=== PATIENT | female | born 1980 | race Caucasian/White ===

== ENCOUNTER 2017-10-23 13:28 | Observation (INO) | payer MEDICARE ==
[2017-10-23 14:34] LABS: #Basophils 0.1 thou/uL (0.0-0.2); #Eosinphils 0.1 thou/uL (0.0-0.7); #Lymphocytes 0.9 thou/uL (1.20-3.40); #Monocytes 0.3 thou/uL (0.11-0.59); %Basophils 1.2 % (0.0-1.0); %Lymphocytes 17.4 % (21.0-51.0); %Neutrophils 74.3 % (42.0-75.0); Hemoglobin 8.9 g/dL (12.0-16.0); Hypochromia SLIGHT = 6-15 cells (100X) (0-5/hpf); MDiff Complete? YES; Mean Corpuscular HGB CONC 31.6 g/dL (32.0-36.0); Mean Corpuscular Hemoglobin 22.4 pg (27.0-31.0); Mean Corpuscular Volume 70.9 fl (81.0-99.0); Mean Platelet Volume 8.5 fL (7.4-10.4); Microcytosis SLIGHT = 6-15 cells (100X) (0-5/hpf); Ovalocytes SLIGHT = 2-5 cells (100X) (0-1/hpf); PLT Morphology Comment Appears Adequate; Platelet Count 248 thou/uL (130-400); RBC Distribution Width 15.2 % (11.5-14.5); Red Blood Cell (RBC) Count 3.95 mill/uL (4.20-5.40); White Blood Cell (WBC) Count 5.3 thou/uL (4.8-10.8)
[2017-10-23 14:36] LABS: ALT (SGPT) 12 U/L (8-55); AST (SGOT) 17 U/L (5-34); Albumin 3.8 g/dL (3.5-5.0); Alkaline Phosphatase 80 U/L (40-150); Anion Gap 13 mmol/L (10-20); BUN (Urea Nitrogen) 11 mg/dL (7.0-18.7); Bilirubin, Total 0.3 mg/dL (0.2-1.2); CK (CPK) 148 U/L (29-168); Calc. Creatinine Clearance 0 mL/min (70-130); Calcium 8.6 mg/dL (7.8-10.44); Carbon Dioxide 23 mmol/L (22-29); Chloride 106 mmol/L (98-107); Estimated GFR-MDRD 77; Globulin 2.6 g/dL (2.4-3.5); Glucose 110 mg/dL (70-105); Lipase 26 U/L (8-78); Potassium 4.5 mmol/L (3.5-5.1); Protein, Total 6.4 g/dL (6.0-8.3); Sodium 137 mmol/L (136-145); Troponin I 0.016 ng/mL (< 0.028)
--- NOTE | 2017-10-23 14:50 | CT ---
CT HEAD NONCONTRAST: History: Fall. Head injury. FINDINGS: There is no evidence of acute intracranial hemorrhage or infarct. The ventricles appear normal in siz e, shape, and position. There is no mass effect or shift of midline structures. Small pocket of gas w ithin the right frontal scalp is consistent with the historically stated laceration. No depressed sku ll fracture is apparent. IMPRESSION: No acute intracranial abnormalities are demonstrated. POS: [facility]
--- NOTE | 2017-10-23 15:20 | RAD ---
CHEST ONE VIEW: History: Syncope. Comparison: 04-06-15 FINDINGS: Cardiac silhouette is magnified and upper limits of normal in size. Pulmonary vasculature is slightly engorged and accentuated by shallow inspiration. Mediastinum is midline. windchill administrator leads overl ie the chest. IMPRESSION: 1. Borderline pulmonary vascular congestion. POS: [facility]
[2017-10-23 15:25] LABS: Clarity Hazy (Clear)
[2017-10-23 15:30] LABS: Bacteria/HPF 1+ HPF (None Seen); RBC/HPF GREATER THAN 50-TNTC HPF (0-3)
[2017-10-23 15:31] LABS: Cocaine Metabolite Screen Not Detected (NotDetected); Methamphetamine Not Detected (NotDetected); Opiate Screen Not Detected (NotDetected); Phencyclidine (PCP) Not Detected (NotDetected); Pregnancy Test - Urine (BHCG) Negative (Negative); Pregu Control Background? CLEAR/WHITE (CLR/WHITE); Pregu Control Bar Appear? YES (CONTROL BAR); THC/Cannabinoid Screen Not Detected (NotDetected)
--- NOTE | 2017-10-23 15:31 | CT ---
CT FACIAL BONES WITH CORONAL AND SAGITTAL REFORMATIONS: HISTORY: Trauma. Laceration to the right forehead and swelling to the bridge of the nose. FINDINGS: No facial bone fracture is seen. No temporomandibular dislocation is identified. No air fluid level s are noted in the paranasal sinuses. The paranasal sinuses and mastoid air cells are clear. There is minimal mucosal disease in the left maxillary sinus. IMPRESSION: No CT evidence of facial bone fracture. POS: [facility]
[2017-10-23 15:32] LABS: Amphetamine Detected (NotDetected); Barbiturates Screen Not Detected (NotDetected); Benzodiazepine Screen Not Detected (NotDetected); Medtox Control Line Valid? VALID (VALID); Methadone Not Detected (NotDetected); Oxycodone Screen Not Detected (NotDetected); Tricyclic Screen Detected (NotDetected)
[2017-10-23] MEDS ORDERED: Ketorolac Tromethamine 30 MG/ML VIAL ONE (15:37)
[2017-10-23 17:17] LABS: Troponin I 0.029 ng/mL (< 0.028)
[2017-10-23 17:59] VITALS: BMI 34.2
[2017-10-23] MEDS ORDERED: Ondansetron ODT 4 MG TAB SL PRN (18:10)
[2017-10-23] MEDS ORDERED: Ondansetron HCl/PF 4 MG/2 ML Vial IVP PRN (18:10)
[2017-10-23] MEDS ORDERED: Senokot 8.6 MG TAB PO PRN (18:59)
[2017-10-23] MEDS ORDERED: Sodium Chloride 0.9% 1,000 ML IV SCH (19:00)
[2017-10-23] MEDS: Acetaminophen 325 MG TAB PO PRN (20:40)
[2017-10-23] MEDS: Famotidine 20 MG TAB PO SCH (20:40)
[2017-10-23] MEDS: Zolpidem Tartrate 5 MG TAB PO PRN ×2 (20:58→20:59)
[2017-10-23] MEDS ORDERED: buPROPion HCl 100 MG TAB PO SCH (21:00)
--- NOTE | 2017-10-23 21:07 | HP ---
REASON FOR ADMISSION: Syncope, indeterminate cardiac enzymes. HISTORY OF PRESENTING ILLNESS: The patient gives history of not feeling well from last 2 weeks. She also mentions that she takes annual iron infusions, the last one was in 06/2017. This morning, the patient was playing with her children and her friend's kids as well. They were all planning to go for a small picnic around 11:30 in the morning. The next thing she knows is one of her kid is telling her that she has got a wound on her right forehead and was bleeding. At the same time, the parents of the friend's kid arrived and drove her to the emergency room. She has had laceration to the right pentecostalism area and has had trauma protocol CT brain and CT facial bones done with no acute fractures. Patient does not recollect having fallen/hit her face anywhere. No complaints of chest pain, palpitation, PND or orthopnea. No complaints of cough or expectoration. No complaints of starting any new medications. No urinary frequency or urgency or fever at home. There is no diarrhea, nausea or vomiting. PAST MEDICAL AND SURGICAL HISTORY: History of depression, anxiety, ADHD, PTSD, appendectomy, hypothyroidism, chronic anemia with a yearly infusions, prior history of small-bowel obstruction with surgeries done. She was hospitalized for nearly 6 months and was in a coma as well for 3 weeks during that hospitalization. History of gastric bypass 11 years ago, cholecystectomy, appendectomy, and hernia surgery x2. All of the surgeries were done by Dr. Pereira except gastric bypass, which was done 11 years back. Insomnia. CURRENT MEDICATIONS: The patient is on Ambien 10 mg p.o. at bedtime, Wellbutrin 100 mg p.o. twice daily, levothyroxine 25 mcg p.o. daily, Adderall 30 mg p.o. daily, Zoloft 200 mg p.o. at bedtime. ALLERGIES: No known drug allergies. PERSONAL HISTORY: She does not abuse alcohol or drugs. No history of smoking. Lives with her . Has three children, the last kid is 6 years old. The patient is on disability. FAMILY HISTORY: Mother is living. She has history of obesity and depression. Father at the age of 62 years. He had history of cancer spreading to lungs , kidney and brain. REVIEW OF SYSTEMS: The following complete review of systems was negative, unless otherwise mentioned in the HPI or below: Constitutional: Weight loss or gain, ability to conduct usual activities. Skin: Rash, itching. Eyes: Double vision, pain. ENT/Mouth: Nose bleeding, neck stiffness, pain, tenderness. Cardiovascular: Palpitations, dyspnea on exertion, orthopnea. Respiratory: Shortness of breath, wheezing, cough, hemoptysis, fever or night sweats. Gastrointestinal: Poor appetite, abdominal pain, heartburn, nausea, vomiting, constipation, or diarrhea. Genitourinary: Urgency, frequency, dysuria, nocturia. Musculoskeletal: Pain, swelling. Neurologic/Psychiatric: Anxiety, depression. Allergy/Immunologic: Skin rash, bleeding tendency. PHYSICAL EXAMINATION: GENERAL: The patient is a 36-year-old female, who is not in any acute distress at present. VITAL SIGNS: Blood pressure 96/54, pulse 90 per minute, respiratory rate 18 per minute, temperature 98.3 degrees Fahrenheit, saturating 99% on room air. NECK: Supple, no elevated JVD. HEENT: Eyes: Extraocular muscles intact. Pupils are reacting to light. Oral cavity: Mucous membranes are moist. No exudates or congestion. The patient has a laceration over her right pentecostalism, which is linear measuring 2 cm in length. This has been approximated with the Dermabond. She also has a small laceration over the bridge of the nose, which is less than 0.5 cm. CARDIOVASCULAR: S1, S2 heard. Regular rhythm. RESPIRATORY: Air entry 2+ bilateral. Scattered rhonchi plus, no rales or wheezes. ABDOMEN: Soft, bowel sounds heard. No tenderness, rigidity or guarding. EXTREMITIES: No peripheral edema or calf tenderness. VASCULAR SYSTEM: Peripheral pulses 2+ bilateral, no ischemic ulcerations or gangrene. CENTRAL NERVOUS SYSTEM: No gross focal deficits seen. The patient is alert and oriented well. PSYCHIATRIC: The patient's mood is euthymic. No hallucinations or delusions. LABORATORY AND X-RAY FINDINGS: Urine drug screen is positive for tricyclics and amphetamine, likely due to Adderall. Urine test is negative. Troponin I first set was negative, second set is 0.029. CK-MB is 4.0, albumin is 3.8, lipase is 26, BUN 11, creatinine 0.8, and serum glucose 110. Liver enzymes are within normal limits. Electrolytes are stable. White count of 5.3 , hemoglobin and hematocrit 8.9 and 28, platelet count 248, MCV is 70 with 74% neutrophils. EKG was done shows normal sinus rhythm at 69 beats per minute, no gross ST-T wave changes. CLINICAL IMPRESSION AND PLAN: The patient will be under observation on telemetry for syncope with indeterminate cardiac enzyme and chest x-ray showing mild cardiomegaly. Please note, the patient has had CT head and CT facial bones done, which have not shown any fractures or abnormalities. We will obtain one more set of troponin in the morning. She will be on normal saline at 70 mL per hour. I am told by the nurse that her orthostatic blood pressures are within normal limits. The patient is on multiple psychotropic medications plus the Ambien, which might have caused the current syncope. Her QT interval was 404 with no prolongation at present, but nevertheless, it is unclear if she had any arrhythmias which led to this. She will be on full dose aspirin. We will continue her Wellbutrin, Adderall, Synthroid, Zoloft, and a lower dose of Ambien for now. We will also consult Dr. Pond for Cardiology. Echo with 2D Doppler and a nuclear stress test will be obtained as well. She will be closely monitored on telemetry for possible arrhythmias. MARGARITO
[2017-10-23] MEDS: Metoprolol Tartrate 25 MG TAB PO SCH (22:33)
[2017-10-24] MEDS: traMADol HCl 50 MG TAB PO PRN ×3 (00:05→12:16)
[2017-10-24] MEDS: Nitroglycerin 2% Ointment 1 INCH/1 GM Packet TOP SCH ×3 (00:06→13:08)
[2017-10-24] MEDS: Acetaminophen 325 MG TAB PO PRN ×3 (00:44→12:16)
[2017-10-24 05:33] LABS: #Eosinphils 0.1 thou/uL (0.0-0.7); #Monocytes 0.4 thou/uL (0.11-0.59); #Neutrophils 4.5 thou/uL (1.40-6.50); %Basophils 0.4 % (0.0-1.0); %Eosinophils 1.1 % (0.0-10.0); %Lymphocytes 28.6 % (21.0-51.0); %Monocytes 6.3 % (0.0-10.0); %Neutrophils 63.6 % (42.0-75.0); Hemoglobin 8.5 g/dL (12.0-16.0); Mean Corpuscular HGB CONC 31.9 g/dL (32.0-36.0); Mean Corpuscular Hemoglobin 23.5 pg (27.0-31.0); Mean Corpuscular Volume 73.6 fl (81.0-99.0); Mean Platelet Volume 8.5 fL (7.4-10.4); Platelet Count 238 thou/uL (130-400); RBC Distribution Width 15.5 % (11.5-14.5); Red Blood Cell (RBC) Count 3.63 mill/uL (4.20-5.40)
[2017-10-24 05:51] LABS: Anion Gap 9 mmol/L (10-20); BUN (Urea Nitrogen) 10 mg/dL (7.0-18.7); Calc. Creatinine Clearance 139 mL/min (70-130); Calcium 8.3 mg/dL (7.8-10.44); Carbon Dioxide 22 mmol/L (22-29); Cardiac Risk 2.7 (Less than 4.5); Chloride 111 mmol/L (98-107); Cholesterol 123 mg/dl (< 200 Desired); Estimated GFR-MDRD 80; Glucose 92 mg/dL (70-105); HDL Cholesterol 45 mg/dL (>60 Neg Risk); LDL Cholesterol, Calculated 65 mg/dL; Sodium 138 mmol/L (136-145); Triglycerides 67 mg/dL (Less than 150)
[2017-10-24] MEDS ORDERED: Levothyroxine Sodium 25 MCG TAB PO SCH (06:00)
[2017-10-24 07:51] LABS: Troponin I 0.012 ng/mL (< 0.028)
[2017-10-24] MEDS ORDERED: Aspirin 325 MG TAB PO SCH (09:00)
[2017-10-24] MEDS ORDERED: Dextroamphetamine/Amphetamine [Adderall] 30 MG PO SCH (09:00)
--- NOTE | 2017-10-24 10:53 | PDOC.PN ---
- Subjective Encounter Start Date: 10/24/17 Encounter Start Time: 15:35 Subjective: Patient had her first episode yesterday after taking 200mg Welbutrin , then -: second episode in hospital last night 30min after 100mg Welbutrin. No -: problems since. Feeling fine. - Objective Resuscitation Status: Resuscitation Status FULL:Full Resuscitation MAR Reviewed: Yes Vital Signs & Weight: Vital Signs (12 hours) Temp Pulse Resp BP BP BP BP 10/24/17 08:00 97.8 F 57 L 16 10/24/17 07:47 97.8 F 57 L 16 96/51 L 95/54 L 94/51 L 10/24/17 05:02 98.0 F 64 20 95/53 L Pulse Ox 10/24/17 08:00 10/24/17 07:47 95 10/24/17 05:02 95 Weight Weight 206 lb I&O: 10/23/17 10/24/17 10/25/17 06:59 06:59 06:59 Intake Total 1073 Output Total 1100 Balance -27 Result Diagrams: 10/24/17 04:57 10/24/17 04:57 Phys Exam - Physical Examination Constitutional: NAD HEENT: PERRLA, moist MMs bruise on right forehead and bridge of nose Respiratory: no wheezing, no rales, no rhonchi, clear to auscultation bilateral Cardiovascular: RRR, no significant murmur Gastrointestinal: soft, positive bowel sounds Musculoskeletal: no edema Neurological: non-focal, moves all 4 limbs Psychiatric: normal affect, A&O x 3 Dx/Plan (1) Syncope Code(s): R55 - SYNCOPE AND COLLAPSE Status: Acute Qualifiers: Syncope type: unspecified Qualified Code(s): R55 - Syncope and collapse Comment: recurrent episode in bed 30 min after Welbutrin last night (2) Elevated troponin Code(s): R74.8 - ABNORMAL LEVELS OF OTHER SERUM ENZYMES Status: Resolved Comment: mild indeterminate trop on second set only, resolved (3) Depression with anxiety Status: Chronic - Plan cont current plan of care ECHO and stress test negative. Dr. Rodriguez has cleared for discharge. Will -: do outpatient event monitor. Stop all Welbutrin and f/u with PCP in 1 week. * . - Discharge Day Encounter end time: 15:55
[2017-10-24] MEDS ORDERED: ADENOSINE 60 MG/20 ML VIAL ONE (11:53)
--- NOTE | 2017-10-24 12:11 | NM ---
RADIONUCLIDE STRESS AND REST MYOCARDIAL PERFUSION SCAN WITH CT ATTENUATION CORRECTION AND SPECT IMAGI NG WITH LEFT VENTRICULAR WALL MOTION EVALUATION AND EJECTION FRACTION: HISTORY: Chest pain. FINDINGS: Adenosine protocol was used. There is homogeneous uptake of radiotracer throughout the left ventricul ar myocardium. No focal perfusion defect or reversibility. QGS analysis of gated SPECT images shows no focal wall motion abnormalities. Left ventricular ejectio n fraction is calculated at 70%. IMPRESSION: 1. Normal myocardial perfusion scan. 2. Normal LVEF. POS: [facility]
[2017-10-24] MEDS: Enoxaparin Sodium 40 MG/0.4 ML SYRINGE SC SCH ×2 (12:19→16:19)
[2017-10-24] MEDS: Famotidine 20 MG TAB PO SCH (12:19)
[2017-10-24] MEDS: Metoprolol Tartrate 25 MG TAB PO SCH (13:08)
[2017-10-24 15:31] VITALS: BP 97/55; TEMP 97.8
--- NOTE | 2017-10-24 16:21 | CON ---
DATE OF CONSULTATION: 10/24/2017 CARDIOLOGY CONSULTATION REASON FOR CONSULTATION: Syncope. HISTORY OF PRESENT ILLNESS: Ms. Hayes is a very pleasant 36-year-old white female who comes to the hospital for syncopal spell. She was at home taking care of several kids and she lifted a kid from a high chair and she woke up on the floor with blood around her face and the kids are trying to wake her up to see what was going on. She was brought into the emergency room for this. CT of the facial bones done showed no fractures. Cardiology is being consulted for this. She denies any chest pain, tightness, or pressure. No shortness of breath, no presyncopal symptoms. No palpitations, no lightheadedness in the past, this is the first time she has ever passed out. PAST MEDICAL HISTORY: 1. Depression. 2. Anxiety. 3. Attention deficit hyperactivity disorder. 4. Post-traumatic stress disorder. 5. Hypothyroidism. 6. Chronic anemia with yearly infusions secondary to gastric bypass 11 years ago. PAST SURGICAL HISTORY: 1. Appendectomy. 2. Small-bowel obstruction with surgery in the past. 3. Gastric bypass 11 years ago. 4. Cholecystectomy. 5. Appendectomy. 6. Hernia repair x2. OUTPATIENT MEDICATIONS: Include, 1. Ambien 10 mg at bedtime. 2. Wellbutrin 100 mg b.i.d. 3. Levothyroxine 25 mcg a day. 4. Adderall 30 mg a day. 5. Zoloft 200 mg at bedtime. ALLERGIES: No known drug allergies. SOCIAL HISTORY: No alcohol, tobacco or drugs. Lives with her , has 3 kids. She is disabled from her PTSD. FAMILY HISTORY: Noncontributory. REVIEW OF SYSTEMS: A 12 point review of systems was done and is all negative unless stated in history of present illness. PHYSICAL EXAMINATION: VITAL SIGNS: Temperature 97.8, pulse 57, respiration rate 18, satting 96% on room air, blood pressure 97/55. She is not orthostatic. GENERAL: Awake, alert, oriented x3, in no distress. HEENT: Normocephalic, atraumatic. NECK: Supple. LUNGS: Clear. CARDIOVASCULAR: S1, S2, no S3, S4, no murmurs or rubs. ABDOMEN: Soft, positive bowel sounds. EXTREMITIES: No edema. SKIN: Warm and dry. LABORATORY DATA: Laboratory work was reviewed. CBC with anemia; hemoglobin 8.5 , normal platelet count. Chemistries were unremarkable. Troponin was 0.01, 0.02, 0.01. Albumin was 3.8, triglycerides of 67, cholesterol of 123, LDL of 65 , HDL of 45. Lipase was normal. UA showed greater than 50 white cells and nitrites were negative. Toxicology was positive for tricyclics and amphetamines , which is on her medication list. IMAGING DATA: Nuclear stress that was done and it showed no areas of ischemia. EF was 70% on the test. Echocardiogram was done. EF of 50%-55% with moderate MR, mild TR, mild PI. ASSESSMENT AND PLAN: 1. Syncope. 2. Anxiety and depression, on several psychotropic drugs. PLAN: 1. No major arrhythmias seen on telemetry monitoring. No ischemia or valvular abnormality seen on echocardiogram and stress testing. 2. We will plan on doing more monitoring as she may have tachybradycardia given her syncopal spells. We will plan on doing a 30-day event monitor. If this does not yield any results, we will do a LINQ implantable loop recorder monitor for long-term monitoring. There is concern about cardiac syncope giving her no warning and having a child in her hands and falling. I have advised her not to drive for the next 6 months for DP as rules and not to engage in any high risk activities. If she would report to pass out, that would be fatal or risk injury. She verbalized understanding of this. 3. She may be discharged home from the hospital today. We will send her the information for the event monitor and we will follow up with her in 1 month. MARGARITO
--- NOTE | 2017-10-25 06:12 | DIS ---
PRIMARY CARE PHYSICIAN: Dr. Sohail Vega at [facility]. DIAGNOSES ON ADMISSION: 1. Syncope. 2. Indeterminate troponin. 3. Right muslim laceration. DIAGNOSES AT DISCHARGE: 1. Syncope, likely related to increased Wellbutrin dose. 2. Indeterminate troponin, resolved with negative cardiac workup. 3. Depression, anxiety, chronic. 4. Right temporal laceration repaired. PROCEDURES: 1. CT of the brain showing no fracture or other abnormality. 2. Facial bone CT showing no evidence of facial bone fracture. 3. Echocardiogram showing normal ejection fraction and no significant abnormalities. 4. Nuclear medicine stress test, which was negative for any evidence of ischemia. CONSULTATIONS: Cardiology, Dr. Pond. SUMMARY OF HOSPITAL COURSE: This is a 36-year-old white female with an extensive history of anxiety, depression, ADHD, PTSD, who is on several medicines for this, recently had an increase in her dose o f Wellbutrin from 150 mg extended release once a day to 100 mg twice a day. She had been forgetting to take these, and so her primary care physician just told her to go ahead and take 200 mg at one [facility] in the morning. The patient has been doing this for about a week and has been feeling very bad for the last week. She took her morning medicines around 11 on the day of admission, and soon after evette t, she woke up with wound in her forehead, apparently had passed out, hit her head, was brought to [facility] emergency room. There, her vital signs were normal. She had a laceration repaired in the emergenc y room and had negative workup as above. The patient was put in the hospital, had a cardiac workup, it was negative. She was given her home medications of Wellbutrin 100 mg twice a day and they gave h er another 100 mg tablet later in the evening. Thirty minutes after taking this, she actually became confused, spilled water everywhere and was trying to get out of bed and was not able to respond, patrick y groggy, this lasted for a few minutes and then she cleared. Her Wellbutrin was stopped. The patie nt's orthostatic vital signs were normal. Her Wellbutrin was held. She had no more symptoms during hospitalization. Dr. Pond was consulted and determined that this is not likely cardiac, but recomm ended doing an outpatient event monitoring, which he will set up. He has cleared her to go home. DISCHARGE MANAGEMENT: Discharged home. Followup with primary care physician in [address] Pond as directed. ACTIVITY: As tolerated. DIET: Regular diet. MEDICATIONS: The patient is to stop her Wellbutrin, resume all her other home medications. 1. Adderall 30 mg each morning. 2. Levothyroxine 25 mcg daily. 3. Doxepin 100 mg daily as needed. 4. Zoloft 200 mg at night. 5. Ambien 10 mg at night.
--- NOTE | 2017-10-30 14:00 | STRESS ---
Acquisition Time: 2017-10-24 10:26:20 Total Exercise Time: 00:04:00 Test Indications: CHEST PAIN Medications: Protocol: ADENOSINE Max HR: 100 BPM 55% of Pred: 181 BPM Max BP: 118/058 mmHG Max Work Load: 1.0 METS RESTING ECG: NORMAL SINUS RYTHM AT 85 BPM SYMPTOMS: SHORTNESS OF BREATH NORMAL BP RESPONSE ECTOPY: NONE ECG STRESS: NO SIGNIFICANT CHANGES INTERPRETATION: AWAIT NUCLEAR IMAGES FOR DEFINITIVE DIAGNOSIS Confirmed by JC XIAO ([id number]), television news video editor RENATA SNIDER ([id number]) on 10/30/2017 1:59:27 PM Referred By: MD Asmita GELLER Confirmed By:JC XIAO
== END 2017-10-24 17:13 | disposition home or self-care (01) ==
LOC: SCSER 13:28 → 2SW 16:05
PROVIDERS: ADMIT Internal Medicine; ATTEND Internal Medicine
DX: R55 Syncope and collapse (principal); F32.9 Major depressive disorder, single episode, unspecified; F41.9 Anxiety disorder, unspecified; S01.81XA Laceration without foreign body of other part of head, initial encounter; F90.9 Attention-deficit hyperactivity disorder, unspecified type; F43.10 Post-traumatic stress disorder, unspecified; E03.9 Hypothyroidism, unspecified; D64.9 Anemia, unspecified; G47.00 Insomnia, unspecified; R74.8 Abnormal levels of other serum enzymes; Z79.899 Other long term (current) drug therapy; Z98.84 Bariatric surgery status; Z90.49 Acquired absence of other specified parts of digestive tract; Z98.890 Other specified postprocedural states
CPT/HCPCS: 12011; 70450; 70486; 71045; 78452; 80048; 80053; 80061; 80306; 81001; 81025; 82550; 82553; 83690; 84484 ×3; 85025 ×2; 93005; 93017; 93306; 94760 ×2; 96361; 96374; 99285; A9500; G0378; 36415; 93010; A4216; J0153; J1650; J1885